=== PATIENT | male | born 1980 | race Caucasian/White ===

== ENCOUNTER 2016-08-11 17:15 | Emergency (ER) | payer MEDICAID | END 2016-08-11 18:31 | disposition left against medical advice (07) | LOC: DL.ED 17:15 | DX: Z53.21 Procedure and treatment not carried out due to patient leaving prior to being seen by health care provider (principal) ==

== ENCOUNTER 2017-07-25 15:12 | Emergency (ER) | payer MEDICAID ==
[2017-07-25] MEDS ORDERED: Lidocaine 5% Oint 35.44 GM Tube TOP ONE (16:34)
[2017-07-25] MEDS ORDERED: Lidocaine 1% with EPINEPHrine 1:100,000 30 ML MDV INJECT ONE (16:34)
[2017-07-25] MEDS ORDERED: Acetaminophen/HYDROcodone 325-10 MG Tab PO ONE (17:16)
[2017-07-25 17:22] VITALS: BP 133/96
--- NOTE | 2017-07-26 11:26 | EDM.PDOC ---
Scribed by Denise Castañeda 07/26/17 1126 for Tim Fox MD ED HPI GENERAL MEDICAL PROBLEM - General Chief Complaint: Gastrointestinal Problem Stated Complaint: SORE ON BOTTOM [id number] Time Seen by Provider: 07/25/17 16:25 Source of Information: Reports: Patient, RN, RN Notes Reviewed History Limitations: Reports: No Limitations - History of Present Illness INITIAL COMMENTS - FREE TEXT/NARRATIVE: Patient presents with complaint of onset of a very painful lump about the size of a grape at the external anus. The pain began 12 hours ago. Denies rectal bleeding. Onset: Today Duration: Getting Worse Location: Reports: Other (external anus) Quality: Reports: Ache Severity: Severe Improves with: Reports: None Worsens with: Reports: None Associated Symptoms: Reports: No Other Symptoms Rectal Pain Score (Numeric/FACES): 8 - Related Data Allergies Allergy/AdvReac Type Severity Reaction Status Date / Time No Known Allergies Allergy Verified 10/01/15 06:23 Home Meds: Home Meds Acetaminophen [Tylenol] 1,000 mg PO BID PRN 11/06/13 [History] Lisinopril 10 mg PO DAILY 11/06/13 [History] Magnesium Oxide [Magnesium] 500 mg PO DAILY 11/06/13 [History] Multivitamin [Multivitamins] 1 each PO DAILY 11/06/13 [History] Omeprazole 20 mg PO DAILY 11/06/13 [History] SUMAtriptan Succinate [Imitrex] 100 mg PO DAILY PRN 11/06/13 [History] Sertraline HCl [Zoloft] 150 mg PO DAILY 11/06/13 [History] Fish Oil/DHA/EPA [Fish Oil 1,200 MG] 2,000 tab PO DAILY 08/19/15 [History] Zinc [Zinc Lozenge] 25 mg PO DAILY 09/28/15 [History] Acetaminophen with Codeine [Acetaminophen-Cod #2] 1 tab PO Q8HR PRN 07/14/16 [ History] Past Medical History HEENT History: Reports: Allergic Rhinitis, Impaired Vision Cardiovascular History: Reports: Hypertension Respiratory History: Reports: None Gastrointestinal History: Reports: GERD, Hemorrhoids Genitourinary History: Reports: None Musculoskeletal History: Reports: Fracture Other Musculoskeletal History: with pinning left ankle Neurological History: Reports: Migraines Psychiatric History: Reports: Anxiety, Depression, OCD, Other (See Below) ( special needs adult.) Endocrine/Metabolic History: Reports: Obesity/BMI 30+ Hematologic History: Reports: None Immunologic History: Reports: None Oncologic (Cancer) History: Reports: None Dermatologic History: Reports: Seborrheic Dermatitis - Infectious Disease History Infectious Disease History: Reports: Chicken Pox, Measles, Mumps - Past Surgical History HEENT Surgical History: Reports: Other (See Below) Other HEENT Surgeries/Procedures: wisdom teeth GI Surgical History: Reports: Cholecystectomy Social & Family History - Family History Family Medical History: Noncontributory - Tobacco Use Smoking Status *Q: Never Smoker Second Hand Smoke Exposure: No - Caffeine Use Caffeine Use: Reports: Soda Caffeine Use Comment: 4 to 5 sodas per day - Alcohol Use Days Per Week of Alcohol Use: 0 - Recreational Drug Use Recreational Drug Use: No Drug Use in Last 12 Months: No - Living Situation & Occupation Living situation: Reports: Single, with Family Occupation: Employed ED ROS GENERAL - Review of Systems Review Of Systems: ROS reveals no pertinent complaints other than HPI. ED EXAM, GI/ABD - Physical Exam Exam: See Below Exam Limited By: No Limitations General Appearance: Obese Head: Atraumatic, Normocephalic Respiratory/Chest: No Respiratory Distress, Lungs Clear, Normal Breath Sounds, No Accessory Muscle Use, Chest Non-Tender Cardiovascular: Normal Peripheral Pulses, Regular Rate, Rhythm, No Edema, No Gallop, No JVD, No Murmur, No Rub GI/Abdominal Exam: Other (benign obese abdomen) (Male) Exam: Deferred Rectal (Males) Exam: Other (Acutely tender non-thrombosed external hemorrhoid at 4 o'clock position, no tissue, no visible signs of bleeding. Patient unable to tolerate digital rectal exam due to the pain.) Neurological: Alert, Oriented, CN II-XII Intact, Normal Cognition, Normal Gait, Normal Reflexes, No Motor/Sensory Deficits Psychiatric: Normal Affect, Normal Mood Skin Exam: Warm, Dry, Intact, Normal Color, No Rash Course - Vital Signs Last Recorded V/S: Last Vital Signs Temp 36.2 C 07/25/17 15:24 Pulse 86 07/25/17 17:22 Resp 18 07/25/17 17:22 BP 133/96 H 07/25/17 17:22 Pulse Ox 96 07/25/17 17:22 - Orders/Labs/Meds Meds: Medications Discontinued Medications Generic Name Dose Route Start Last Admin Trade Name Bell PRN Reason Stop Dose Admin Hydrocodone Bitart/Acetaminophen 1 tab 07/25/17 17:16 07/25/17 17:20 [place] 325-10 Mg PO 07/25/17 17:17 1 tab ONETIME ONE Administration Lidocaine HCl 15 gm 07/25/17 16:34 07/25/17 17:12 Lidocaine 5% TOP 07/25/17 16:35 2 gram ONETIME ONE Administration Lidocaine/Epinephrine 30 ml 07/25/17 16:34 07/25/17 17:14 Xylocaine 1% With Epinephrine 1:100,000 INJECT 07/25/17 16:35 Not Given ONETIME ONE Departure - Departure Time of Disposition: 17:11 Disposition: Home, Self-Care 01 Condition: Fair Clinical Impression: External hemorrhoid - Discharge Information Instructions: Witch Sharri topical solution wipes, Hemorrhoids, [id number] Referrals: Parish Adam MD [Primary Care Provider] - Forms: ED Department Discharge Additional Instructions: RX: [place] 5.325mg. *DO not drive or work while under the influence of this medication. Use moist baby wipes instead of toilet paper. Use shower spray nozzle to clean after bowel movements if unable to tolerate baby wipes. He was sent home wit Lidocaine 5% ointment: apply small amount q2 hours p.r.n. pain. On Thursday call [facility] outpatient surgery to schedule an appointment for hemorrhoid evaluation. If your insurance requires referral to see a surgeon, please contact your regular physician for referral. Call primary physician next week if pain is uncontrolled. I have read and agree with the documentation that has been completed regarding this visit. By signing this record, I attest that the documentation was completed in my physical presence and is an accurate record of the encounter.
== END 2017-07-25 17:24 | disposition home or self-care (01) ==
LOC: DL.ED 15:12
DX: K64.4 Residual hemorrhoidal skin tags (principal); I10 Essential (primary) hypertension; K21.9 Gastro-esophageal reflux disease without esophagitis; F32.9 Major depressive disorder, single episode, unspecified; E66.9 Obesity, unspecified; Z79.899 Other long term (current) drug therapy; Z68.35 Body mass index [BMI] 35.0-35.9, adult
CPT/HCPCS: 99282; A9270

== ENCOUNTER 2023-09-03 06:21 | Day surgery (SDC) | payer MEDICARE, MEDICAID ==
[2023-09-03] MEDS ORDERED: fentaNYL 100 MCG/2 ML SDV IV ONE (06:22)
[2023-09-03] MEDS ORDERED: Midazolam 1 MG/ML 2 ML SDV IV ONE (06:22)
[2023-09-03] MEDS: Dextrose 5%-0.45% NaCl 1,000 ML IV SCH (07:00)
[2023-09-03] MEDS ORDERED: Midazolam 1 MG/ML 2 ML SDV ONE (07:02)
[2023-09-03] MEDS ORDERED: fentaNYL 100 MCG/2 ML SDV ONE (07:02)
[2023-09-03] MEDS: fentaNYL 100 MCG/2 ML SDV IV ONE ×2 (07:41→07:43)
[2023-09-03] MEDS: Midazolam 1 MG/ML 2 ML SDV IV ONE ×6 (07:43→07:50)
[2023-09-03 09:59] VITALS: BP 114/71; PULSE 85
== END 2023-09-03 09:55 | disposition home or self-care (01) ==
LOC: DL.ENDO 06:21
PROVIDERS: ATTEND Internal Medicine Gastroenterology
DX: K62.5 Hemorrhage of anus and rectum (principal); K64.8 Other hemorrhoids; K52.9 Noninfective gastroenteritis and colitis, unspecified; I10 Essential (primary) hypertension; E78.00 Pure hypercholesterolemia, unspecified; K21.9 Gastro-esophageal reflux disease without esophagitis; E66.01 Morbid (severe) obesity due to excess calories; Z68.42 Body mass index [BMI] 45.0-49.9, adult
CPT/HCPCS: J2250; J3010; J7042

== ENCOUNTER 2024-06-19 19:25 | Emergency (ER) | payer MEDICARE, MEDICAID ==
[2024-06-19 20:07] LABS: BASOPHILS PERCENT AUTO 0.2 % (0.0-1.0); EOSINOPHILS PERCENT AUTO 0.1 % (1.0-3.0); HEMATOCRIT 46.4 % (40.0-54.0); HEMOGLOBIN 15.9 g/dL (14.0-18.0); MEAN CORPUSCULAR HEMOGLOBIN 28.3 pg (27.0-34.0); MEAN CORPUSCULAR HGB CONC 34.3 g/dL (33.0-35.0); MEAN CORPUSCULAR VOLUME 82.6 fL (80-100); MONOCYTES PERCENT AUTO 5.1 % (2-8); NEUTROPHILS PERCENT AUTO 92.6 % (42.2-75.2); PLATELET COUNT,PLT 223 10^3/uL (150-450); RED BLOOD CELL COUNT 5.62 10^6/uL (4.6-6.2); WHITE BLOOD CELL COUNT,WBC 12.3 10^3/uL (5.0-10.0)
[2024-06-19] MEDS: Sodium Chloride 0.9% 1,000 ML IV ONE ×2 (20:10→20:48)
[2024-06-19] MEDS: Ondansetron 4 MG/2 ML SDV IVPUSH ONE (20:10)
[2024-06-19 20:26] LABS: ALBUMIN 3.8 g/dL (3.4-5.0); BILIRUBIN TOTAL 1.7 mg/dL (0.2-1.0); BUN/CREATININE RATIO 13.3 (No establ ref range); CALCIUM 9.1 mg/dL (8.5-10.1); CREATININE 1.13 mg/dL (0.70-1.30); EST CRCL DRUG DOSING (CG) 84.78 mL/min; MAGNESIUM 1.3 mg/dL (1.8-2.4); PROTEIN TOTAL,TP 7.7 g/dL (6.4-8.2)
[2024-06-19] MEDS: Magnesium Sulfate/Water Premix 2 GM in Premix Bag 1 BAG IV ONE (20:48)
[2024-06-19] MEDS: Take Home: Ondansetron 4 MG Tab.DIS, 5 Tab Pack PO ONE (21:59)
[2024-06-19] MEDS: Ketorolac 30 MG/ML SDV IVPUSH ONE (22:17)
[2024-06-19 22:56] VITALS: BP 129/63; PULSE 105
== END 2024-06-19 22:48 | disposition home or self-care (01) ==
LOC: DL.ED 19:25
DX: K52.9 Noninfective gastroenteritis and colitis, unspecified (principal); I10 Essential (primary) hypertension; K21.9 Gastro-esophageal reflux disease without esophagitis; Z90.49 Acquired absence of other specified parts of digestive tract; Z79.899 Other long term (current) drug therapy
CPT/HCPCS: 80053; 83690; 83735; 85025; 87428; 93005; 96361; 96365; 96375; 99284; J1885; J2405; J3475; J7030; Q0162